=== PATIENT | male | born 1945 | race Caucasian/White ===

== ENCOUNTER → 2016-09-21 | Day surgery (SDC) | payer MEDICARE ==
[~2016-09-21] MED LIST: ALBUTEROL MININEB INH; ASPIRIN81 M2 PO; CEPHALEXIN250 MG PO; GABAPENTIN300 MG PO; HYDROCODON-ACE1 EAC7 PO; HYDROCODONE-APA1 T54 PO; IPRATR-ALBUTEROL3 ML NEB; LASIX20 MG PO; LIPITOR40 MG PO; NITROGLYCERIN0.4 MG SL; OMEPRAZOLE MAGN20 MG PO; OXYGEN; PULMICORT0.25 MG/2 INH; PULMICORT0.5 MG/2 M NEB; TOPROL XL PO
--- NOTE | ~2016-09-21 | OR ---
Unit #: [id number] #: [id number] Patient: MARIALUISA HERNÁNDEZ [id number] [address] [address] [id number] O MR#: [id number] NAME: MARIALUISA HERNÁNDEZ. ROOM: Date of Procedure: 09/21/2016 Admission Date: 09/21/2016 Surgeon: Artem Miranda M.D. : 1945 Attending Physician: Amilcar Miranda Primary Care Physician: Tuan Damon D.O. [facility] OPERATIVE NOTE PROCEDURE PERFORMED Lumbar epidural steroid injection under x-ray guided needle placement with provider administered conscious sedation. PREOPERATIVE DIAGNOSES 1. Acute lumbar radiculitis. 2. Spinal stenosis, lumbosacral spine. 3. Degenerative joint disease, lumbosacral spine. 4. Degenerative disk disease, lumbosacral spine. 5. Multiple level facet arthrosis, lumbosacral spine. 6. Facet arthralgia, lumbosacral spine. INDICATIONS FOR PROCEDURE The patient presents today status post 2 previous lumbar approach epidural steroid injections occurring approximately 3 to 4 months ago for an acute radiculitis, which had failed at that time to respond to conservative measures. The patient states he got excellent results; however, over the course of the past 4 to 6 weeks, this pain has returned in a crescendo pattern which has failed to respond to his usual ongoing continuous conservative measures. He also has continued to complain of residual pain compatible with the facet arthralgia, which did not respond to the epidurals approximately 3 months ago and he is also beginning to advance at this stage. After discussing risks and benefits of proceeding today with lumbar approach epidural steroid injection as well as an offer to return to this clinic on 01/11/2017, the patient agreed this would be the appropriate course of action. We also discussed referral to [facility] for facet joint injections with possible radiofrequency ablation which the patient also agreed to. DESCRIPTION OF PROCEDURE After these discussions, he was taken to the operating room, where he was prepped and draped in a sterile manner. Standard monitors were applied. He was sedated with 1 mg of IV Versed initially and required additional 1 mg of IV Versed throughout the duration of procedure. Lumbar epidural space was initially attempted to be accessed at the L5-S1 level; however, there was CSF noted upon initial loss of resistance. Following this, the needle was replaced at the L4-L5 level again using loss of resistance and x-ray guided needle placement. Needle placement was confirmed into the epidural space at the L4-L5 level with the injection of 2 mL of Omnipaque. Approximately 80% of dye flow was in the superior direction. Following successful needle placement confirmation which required an x-ray time of 12 seconds, the patient received an injectate containing 6 mL normal saline and 80 mg of methylprednisolone. He tolerated this procedure well. Unit #: [id number] #: [id number] Patient: MARIALUISA HERNÁNDEZ He was discharged home with followup instructions, which include return to this clinic on 01/11/2017 as described above, at which point, he will most likely receive an L5-S1 access injection. Dictated by... Mauro Austin/heriberto TD: 09/22/2016 03:50 JOB #: [id number] CC: Jasson Tracy M.D. [facility] OPERATIVE NOTE Page 1 of 1 X Amilcar Miranda MD X PROCEDURE OPERATIVE NOTE
== END | disposition home or self-care (01) ==
LOC: CCSC 09:41
DX: M51.17 Intervertebral disc disorders with radiculopathy, lumbosacral region (principal); M48.07 Spinal stenosis, lumbosacral region; M47.27 Other spondylosis with radiculopathy, lumbosacral region; F17.210 Nicotine dependence, cigarettes, uncomplicated; Z87.01 Personal history of pneumonia (recurrent); Z98.52 Vasectomy status; Z98.890 Other specified postprocedural states
CPT/HCPCS: J1040; J2250

== ENCOUNTER → 2017-01-04 | Day surgery (SDC) | payer MEDICARE ==
--- NOTE | ~2017-01-04 | OR ---
Unit #: [id number] #: [id number] Patient: MARIALUISA HERNÁNDEZ [id number] [address] [address] [id number] O MR#: [id number] NAME: MARIALUISA HERNÁNDEZ ROOM: Date of Procedure: 01/04/2017 Admission Date: 01/04/2017 Surgeon: Artem Miranda M.D. : 1945 Attending Physician: Amilcar Miranda Referring Physician: Amilcar Miranda Primary Care Physician: Tuan Damon D.O. [facility] OPERATIVE NOTE PROCEDURE PERFORMED Lumbar epidural steroid injection under x-ray guided needle placement with provider administered conscious sedation. PREOPERATIVE DIAGNOSES 1. Acute lumbar radiculitis. 2. Spinal stenosis, lumbosacral spine. 3. Degenerative joint disease, lumbosacral spine. 4. Degenerative disk disease, lumbosacral spine. INDICATIONS FOR PROCEDURE The patient presents today with longstanding history of chronic lumbar radicular pain secondary to his underlying degenerative processes. He is generally fairly well managed medically with conservative measures including medication, but does occasionally experience exacerbations, which to date have only responded to epidural steroid injections. He describes his relief is 80% to 100% for 6 weeks or longer. He is currently experiencing just such an exacerbation and presents today requesting an epidural steroid injection. After discussing risks and benefits of proceeding today with a lumbar approach epidural steroid injection utilized dual needle technique, the patient agreed this would be the appropriate course of action. DESCRIPTION OF PROCEDURE He was then taken to the operating room, where he was prepped and draped in sterile manner. Standard monitors were applied. He was sedated with 1 mg of IV Versed and lumbar epidural space accessed at L5 and L3-L4 levels using loss of resistance technique and x-ray guidance. Needle placement confirmed with injection of 2 mL of Omnipaque. It should be noted that initial needle placement attempt at L3-L4 result in CSF. That needle was withdrawn and replaced, again at L3-L4 using loss of resistance technique. On second placement, the epidural space was successfully obtained. Following this needle placement with a total x-ray time of 9 seconds, the patient received an injectate containing 4 mL normal saline and 80 mg of methylprednisolone at each level for a total injectate volume of 8 mL normal saline and 80 mg of methylprednisolone. He tolerated this procedure well. He was discharged home with followup instructions, which include an offer to return to this clinic as early as 04/12/2017 if we could be of further service to him. Dictated by... Artem Miranda M.D. Unit #: [id number] #: [id number] Patient: MARIALUISA HERNÁNDEZ G/modl TD: 01/04/2017 14:26 JOB #: [id number] CC: Jasson Tracy M.D. [facility] OPERATIVE NOTE Page 1 of 1 X Amilcar Miranda MD X PROCEDURE OPERATIVE NOTE
== END | disposition home or self-care (01) ==
LOC: CCSC 08:30
DX: G89.29 Other chronic pain (principal); M51.17 Intervertebral disc disorders with radiculopathy, lumbosacral region; M47.27 Other spondylosis with radiculopathy, lumbosacral region; M48.07 Spinal stenosis, lumbosacral region; I25.2 Old myocardial infarction; K21.9 Gastro-esophageal reflux disease without esophagitis; J44.9 Chronic obstructive pulmonary disease, unspecified; F17.210 Nicotine dependence, cigarettes, uncomplicated; Z87.01 Personal history of pneumonia (recurrent); Z86.11 Personal history of tuberculosis; Z99.81 Dependence on supplemental oxygen; Z79.82 Long term (current) use of aspirin; Z79.899 Other long term (current) drug therapy; Z79.891 Long term (current) use of opiate analgesic; Z95.5 Presence of coronary angioplasty implant and graft; Z98.52 Vasectomy status; Z98.890 Other specified postprocedural states
CPT/HCPCS: J1040; J2250